=== PATIENT | male | born 1930 | race Caucasian/White ===

== ENCOUNTER 2018-06-13 06:18 | Day surgery (SDC) | payer OTHER ==
[2018-06-12 12:33] VITALS: BMI 22.1
[2018-06-13 06:55] VITALS: TEMP 98.7
[2018-06-13] MEDS ORDERED: PROPOFOL 20 ML ONE (07:27)
[2018-06-13] MEDS ORDERED: BUPIVACAINE HCL/PF 0.5% (5MG/ML) 10 ML VIAL ONE (07:29)
[2018-06-13] MEDS ORDERED: LIDOCAINE HCL 1%, 10 MG/ML (20ML VIAL) ONE (07:29)
[2018-06-13] MEDS ORDERED: LIDOCAINE HCL 1%, 10 MG/ML (20ML VIAL) NR ONE (07:57)
[2018-06-13] MEDS ORDERED: MIDAZOLAM HCL 2 MG/2 ML SINGLE DOSE VIAL ONE (08:25)
[2018-06-13] MEDS ORDERED: BUPIVACAINE HCL/PF 0.5% (5MG/ML) 10 ML VIAL IJ ONE (08:31)
[2018-06-13 10:51] VITALS: BP 140/63; PULSE 72
--- NOTE | 2018-06-16 12:10 | PATH ---
Surgical Pathology Report Patient Name: MICHAEL FINCH [facility]. Rec. #: [id number] /Age/Gender: 1930 (Age: 87) / M Account: [id number] Location: [facility] SURGICAL Taken: 06/13/2018 Received: 06/13/2018 Reported: 06/16/2018 Physicians: Brendan Pineda DPM Specimen(s) Received DISTAL PHALANX RIGHT SECOND TOE Clinical History Osteomyelitis right second toe Final Diagnosis BONE, DISTAL PHALANX RIGHT SECOND TOE, EXCISION: CHRONIC OSTEOMYELITIS. Electronically Signed Yazan Holt M.D. Gross Description Received in formalin labeled "distal phalanx right second toe," is a 1.1 x 0.6 x 0.5 cm leahy-yellow portion of bone. The specimen is bisected and entirely submitted in one cassette, following decalcification. /06/13/2018 saudi/06/13/2018
--- NOTE | 2018-06-17 09:13 | OP ---
DATE OF OPERATION: 06/13/2018 SURGEON: Brendan Pineda DPM BASKET OPERATOR: ESTIMATED BLOOD LOSS: 3 mL. HEMOSTASIS: None. ANESTHESIA: IV MAC with local anesthesia. PREOPERATIVE DIAGNOSIS: Right foot 2nd distal phalanx osteomyelitis. POSTOPERATIVE DIAGNOSIS: Right foot 2nd distal phalanx osteomyelitis. PROCEDURE: Right foot 2nd digit amputation. Patient was brought to the operating room table and placed in a supine position. After adequate IV sedation was given, the right foot was injected with 1% lidocaine plain with a total of 7 mL given. At this time, the right lower extremity was then prepped and draped in the usual aseptic fashion. Next, using a number-15 blade, skin incision was made at the level of the distal interphalangeal joint of the right digit, and the distal interphalangeal joint was disarticulated. At this time, the bone was then passed for specimen, and the surgical site was then flushed with normal saline solution. The middle phalanx of the right 2nd digit appeared to be healthy, and at this time, the skin was reapproximated using 4-0 nylon in simple suture technique. The surgical site was then dressed with Adaptic and sterile 4 x 4's, Venkatesh, and tape. Patient tolerated the procedure and anesthesia well and left the operating room table. Patient was then transferred to PACU and disposition to home. Weight bear as tolerated using surgical shoes at all times. Neurovascular status was intact to the right foot, and condition was stable. dictating for Brendan Pineda DPM. BRENDAN PINEDA DPM /[id number]
== END 2018-06-13 10:51 | disposition home or self-care (01) ==
LOC: JASU-SURG 06:18
PROVIDERS: ATTEND Podiatrist Foot Surgery
PROC: 0Y6R0Z3 Detachment at Right 2nd Toe, Low, Open Approach (ICD-10-PCS; principal; 2018-06-13 07:30)
DX: E11.621 Type 2 diabetes mellitus with foot ulcer (principal); M86.9 Osteomyelitis, unspecified; L97.516 Non-pressure chronic ulcer of other part of right foot with bone involvement without evidence of necrosis; Z79.4 Long term (current) use of insulin
CPT/HCPCS: 82962; 87070; 87075; 87186; 87205; 88304-TC; 88311-TC